=== PATIENT | female | born 1980 | race Caucasian/White ===

== ENCOUNTER 2016-07-07 18:22 | Emergency (ER) | payer OTHER, MEDICARE ==
[2016-07-08 01:55] LABS: HEMOGLOBIN 7.9 gm/dl (12.3-15.3); RED BLOOD COUNT 4.16 M/UL (4.00-5.10); WHITE BLOOD COUNT 5.7 K/UL (4.5-11.0)
[2016-07-08 02:20] LABS: BUN/CREATININE RATIO 24 (0-10)
[2016-07-15] MEDS ORDERED: PRENATAL VITAMIN PO (11:38)
[2016-07-15] MEDS ORDERED: COLACE 100MG C100 MG PO (11:39)
[2016-07-15] MEDS ORDERED: FERROUS SULFAT325 MG PO (11:39)
[2016-07-15] MEDS ORDERED: NITROFURANTOIN100 MG PO (11:40)
[2016-07-15] MEDS ORDERED: METOCLOPRAMIDE10 MG PO (11:41)
[2016-07-15] MEDS ORDERED: NORCO 5-325 TA1 EACH PO (14:01)
[2016-07-15] MEDS ORDERED: IBUPROFEN600 MG PO (14:04)
== END 2016-07-08 04:45 | disposition home or self-care (01) ==
LOC: ER1 18:22
PROVIDERS: Student in an Organized Health Care Education/Training Program
DX: O20.0 Threatened abortion (principal); O23.41 Unspecified infection of urinary tract in pregnancy, first trimester; Z3A.01 Less than 8 weeks gestation of pregnancy
CPT/HCPCS: 36415; 76817; 80053; 81001; 84702; 85025; 86900; 86901; 87077; 87086; 87186; 93005; 96365; 99284; J0696; J7050

== ENCOUNTER 2016-07-10 06:11 | Observation (INO) | payer OTHER, MEDICARE ==
[2016-07-10 07:20] LABS: HEMOGLOBIN 7.3 gm/dl (12.3-15.3); RED BLOOD COUNT 3.82 M/UL (4.00-5.10)
[2016-07-10 07:38] LABS: BUN/CREATININE RATIO 26 (0-10)
[2016-07-15] MEDS ORDERED: PRENATAL VITAMIN PO (11:38)
[2016-07-15] MEDS ORDERED: COLACE 100MG C100 MG PO (11:39)
[2016-07-15] MEDS ORDERED: FERROUS SULFAT325 MG PO (11:39)
[2016-07-15] MEDS ORDERED: NITROFURANTOIN100 MG PO (11:40)
[2016-07-15] MEDS ORDERED: METOCLOPRAMIDE10 MG PO (11:41)
[2016-07-15] MEDS ORDERED: NORCO 5-325 TA1 EACH PO (14:01)
[2016-07-15] MEDS ORDERED: IBUPROFEN600 MG PO (14:04)
== END 2016-07-10 17:32 | disposition home or self-care (01) ==
LOC: ER1 06:11 → ZEROF 09:41 → MED SURG 4 10:34
PROVIDERS: Physician Assistant; ADMIT Obstetrics & Gynecology
DX: O20.0 Threatened abortion (principal); O99.011 Anemia complicating pregnancy, first trimester; O09.521 Supervision of elderly multigravida, first trimester; Z3A.09 9 weeks gestation of pregnancy
CPT/HCPCS: 36415; 76817; 80053; 81001; 84702; 85025; 86850; 86900; 86901; 86920; 96360; 99285; G0378

== ENCOUNTER → 2016-07-15 | Day surgery (SDC) | payer MEDICARE ==
[~2016-07-15] MED LIST: COLACE 100MG C100 MG PO; FERROUS SULFAT325 MG PO; IBUPROFEN600 MG PO; METOCLOPRAMIDE10 MG PO; NITROFURANTOIN100 MG PO; NORCO 5-325 TA1 EACH PO; PRENATAL VITAMIN PO
[2016-07-15 10:58] LABS: RED BLOOD COUNT 3.09 M/UL (4.00-5.10); WHITE BLOOD COUNT 4.8 K/UL (4.5-11.0)
[2016-07-15 11:02] LABS: HEMOGLOBIN 6.1 gm/dl (12.3-15.3)
== END | disposition home or self-care (01) ==
LOC: OR 10:25
PROVIDERS: Obstetrics & Gynecology
PROC: 10D17ZZ Extraction of Products of Conception, Retained, Via Natural or Artificial Opening (ICD-10-PCS; principal; 2016-07-15 11:45)
DX: O03.4 Incomplete spontaneous abortion without complication (principal); D64.9 Anemia, unspecified; Z82.49 Family history of ischemic heart disease and other diseases of the circulatory system; Z82.0 Family history of epilepsy and other diseases of the nervous system
CPT/HCPCS: 36415; 81001; 85025; 86850; 86900; 86901; 86920; J0690; J1885; J2590; J2795; J7120